=== PATIENT | female | born 1975 | race Caucasian/White ===

== ENCOUNTER 2016-10-09 21:07 | Inpatient (IN) | payer OTHER ==
[~2016-10-09] VITALS: Ht 165 cm; Wt 66.7 kg
[~2016-10-09 21:07] MED LIST: CITRIC ACID/SODIUM CITRATE 30 ML SOLUTION UDCUP PO PRN; FentaNYL CITRATE-PF 100 MCG/2 ML VIAL IVP PRN; IRON18TA PO; LIDOCAINE HCL/PF 1% 30 ML VIAL INJ PRN; METOCLOPRAMIDE HCL 5 MG/ML 2 ML VIAL IVP PRN; OXYTOCIN 30 UNITS/LACT RINGERS 500 ML IV ONE; PREN1TAB52 PO; RINGERS SOLUTION,LACTATED 1,000 ML IV ONE
[2016-10-09 21:27] VITALS: BP 120/77
[2016-10-09 21:43] LABS: BASOPHILS # (AUTO) 0.02 K/uL (0.00-0.20); BASOPHILS % (AUTO) 0.3 % (0.0-2.0); EOSINOPHILS # (AUTO) 0.08 K/uL (0.00-0.70); EOSINOPHILS % (AUTO) 1.03 % (1.0-6.0); HEMATOCRIT 38.3 % (36-46); HEMOGLOBIN 12.8 g/dL (12.0-16.0); LYMPHOCYTES # (AUTO) 1.7 K/uL (1.0-4.8); LYMPHOCYTES % (AUTO) 20.5 % (22.0-44.0); MEAN CORPUSCULAR HEMOGLOBIN 30.9 pg (26.0-34.0); MEAN CORPUSCULAR HGB CONC 33.4 G/dL (31.0-37.0); MEAN CORPUSCULAR VOLUME 92 fL (80-100); MONOCYTES # (AUTO) 0.4 K/uL (0.1-1.0); MONOCYTES % (AUTO) 5.3 % (2.0-9.0); NEUTROPHILS # (AUTO) 5.9 K/uL (1.8-7.7); NEUTROPHILS % (AUTO) 72.9 % (40.0-70.0); PLATELET COUNT (AUTO) 229 K/uL (150-450); RED BLOOD CELL COUNT(AUTO) 4.14 MIL/uL (4.00-5.20); RED CELL DISTRIBUTION WIDTH 14.6 % (11.5-14.5); WHITE BLOOD COUNT (AUTO) 8.1 K/uL (4.5-11.0)
[2016-10-09] MEDS: RINGERS SOLUTION,LACTATED 1,000 ML IV SCH (22:12)
[2016-10-09] MEDS ORDERED: MISOPROSTOL 25 MCG TABLET VG ONE (22:15)
[2016-10-10] MEDS ORDERED: MISOPROSTOL 25 MCG TABLET VG SCH (02:15)
[2016-10-10] MEDS: RINGERS SOLUTION,LACTATED 1,000 ML IV SCH ×2 (02:56→06:04)
[2016-10-10] MEDS ORDERED: OXYTOCIN 30 UNITS/LACT RINGERS 500 ML IV PRN (03:00)
[2016-10-10] MEDS ORDERED: FentaNYL/BUPIV 0.125%/NS/PF 200 ML ED PRN (04:55)
[2016-10-10] MEDS ORDERED: BUPIVACAINE HCL/PF 0.25% 10 ML VIAL ONE (04:57)
[2016-10-10] MEDS ORDERED: ONDANSETRON HCL 4 MG/2 ML VIAL IVP PRN (05:00)
[2016-10-10] MEDS ORDERED: NALBUPHINE HCL 10 MG/ML VIAL IVP PRN (05:00)
[2016-10-10] MEDS ORDERED: DiphenhydrAMINE HCL 50 MG/ML VIAL IVP PRN (05:00)
[2016-10-10] MEDS ORDERED: METHYLERGONOVINE MALEATE 0.2 MG TABLET PO PRN (09:15)
[2016-10-10] MEDS ORDERED: BENZOCAINE 20%/MENTHOL 56 GM SPRAY CANISTER TP PRN (09:15)
[2016-10-10] MEDS ORDERED: OxyCODONE HCL/ACETAMINOPHEN 5-325 MG TABLET PO PRN ×2 (09:15)
[2016-10-10] MEDS ORDERED: GLYCERIN/WITCH HAZEL LEAF 40 PADS JAR TP PRN (09:15)
[2016-10-10] MEDS ORDERED: LANOLIN 7 GM OINTMENT TP PRN (09:15)
[2016-10-10] MEDS: IBUPROFEN 800 MG TABLET PO PRN (15:00)
[2016-10-10] MEDS: MAGNESIUM HYDROXIDE SUSPENSION 30 ML UDCUP PO PRN (20:25)
[2016-10-10] MEDS: SENNA/DOCUSATE SODIUM 187-50 MG TABLET PO PRN (20:26)
[2016-10-11 06:27] LABS: BASOPHILS % (AUTO) 0.3 % (0.0-2.0); EOSINOPHILS % (AUTO) 1.2 % (1.0-6.0); HEMATOCRIT 33.3 % (36-46); HEMOGLOBIN 10.8 g/dL (12.0-16.0); LYMPHOCYTES # (AUTO) 1.7 K/uL (1.0-4.8); LYMPHOCYTES % (AUTO) 16.1 % (22.0-44.0); MEAN CORPUSCULAR HGB CONC 32.5 G/dL (31.0-37.0); MEAN CORPUSCULAR VOLUME 92 fL (80-100); MONOCYTES # (AUTO) 0.7 K/uL (0.1-1.0); MONOCYTES % (AUTO) 6.1 % (2.0-9.0); NEUTROPHILS # (AUTO) 8.2 K/uL (1.8-7.7); NEUTROPHILS % (AUTO) 76.3 % (40.0-70.0); RED CELL DISTRIBUTION WIDTH 14.9 % (11.5-14.5); WHITE BLOOD COUNT (AUTO) 10.7 K/uL (4.5-11.0)
[2016-10-11] MEDS: IBUPROFEN 800 MG TABLET PO PRN (08:20)
[2016-10-11] MEDS: MAGNESIUM HYDROXIDE SUSPENSION 30 ML UDCUP PO PRN (08:20)
[2016-10-11] MEDS: SENNA/DOCUSATE SODIUM 187-50 MG TABLET PO PRN (08:20)
[2016-10-11] MEDS ORDERED: FERS325 PO (13:19)
[2016-10-11] MEDS ORDERED: DSS100 PO (13:21)
[2016-10-11] MEDS ORDERED: IBUP-2070 PO (13:24)
== END 2016-10-11 13:50 | disposition home or self-care (01) | DRG 775 ==
LOC: OBSVTOIN 21:07 → 4S 21:07
PROVIDERS: ADMIT Specialist; ATTEND Specialist
PROC: 10E0XZZ Delivery of Products of Conception, External Approach (ICD-10-PCS; principal; 2016-10-10)
PROC: 0HQ9XZZ Repair Perineum Skin, External Approach (ICD-10-PCS; 2016-10-10)
DX: O48.0 Post-term pregnancy (principal); Z3A.40 40 weeks gestation of pregnancy; O70.0 First degree perineal laceration during delivery; Z37.0 Single live birth
CPT/HCPCS: 86850; 86900; 86901; J2590; J3490; J7120